=== PATIENT | female | born 1975 | race Caucasian/White ===

== ENCOUNTER 2022-08-25 09:20 | Outpatient (CLI) | payer OTHER ==
--- NOTE | 2022-08-25 11:29 | XRAY Report ---
PROCEDURE: Shoulder 2 View LT INDICATIONS: PAIN IN LEFT SHOULDER TECHNIQUE: 2 views of the shoulder were acquired. COMPARISON: None. FINDINGS: Bones: Mild acromioclavicular degenerative changes.. No displaced fracture or dislocation. Soft tissues: No suspicious calcifications. IMPRESSION: No acute radiographic abnormality. Mild acromioclavicular degenerative changes. If there is high conc lopez for further derangement, consider MRI evaluation. Reviewed by: Nehemiah Taylor MD on 08/25/2022 11:28 AM PDT Approved by: Nehemiah Taylor MD on 08/25/2022 11:28 AM PDT Station ID: [id number]
--- NOTE | 2022-08-25 11:36 | XRAY Report ---
PROCEDURE: Cervical Spine 2 View INDICATIONS: NECK PAIN TECHNIQUE: 3 view(s) of the cervical spine were acquired. COMPARISON: None. FINDINGS: Bones: Mild degenerative changes, with arthropathy and disc space height loss. No traumatic subluxati on or acute vertebral body height loss. Odontoid view is unremarkable. Soft tissues: No suspicious calcifications or prevertebral soft tissue thickening. IMPRESSION: Mild degenerative changes. If there is high concern for further derangement, consider MRI evaluation. : Reviewed by: Nehemiah Taylor MD on 08/25/2022 11:34 AM PDT Approved by: Nehemiah Taylor MD on 08/25/2022 11:34 AM PDT Station ID: [id number]
== END 2022-08-25 09:21 | disposition home or self-care (01) ==
LOC: DI 09:20
PROVIDERS: ATTEND Nurse Practitioner
DX: M47.812 Spondylosis without myelopathy or radiculopathy, cervical region (principal); M19.012 Primary osteoarthritis, left shoulder